=== PATIENT | female | born 1945 | race African-American/Black ===

== ENCOUNTER → 2019-01-29 | Outpatient (CLI) | payer MEDICAID, MEDICARE, OTHER | END | disposition home or self-care (01) | LOC: RAD 14:48 | PROVIDERS: ATTEND Family Medicine | DX: J98.4 Other disorders of lung (principal) | CPT/HCPCS: 71046 ==

== ENCOUNTER 2021-05-03 15:30 | Emergency (ER) | payer MEDICARE, MEDICAID ==
[~2021-05-03] VITALS: Ht 154.9 cm; Wt 69.4 kg
--- NOTE | 2021-05-03 16:00 | NUR ---
PT WALKED BACK TO ROOM WITH A SMOOTH AND STEADY GAIT WITH CANE. PT CAME INTO ED TODAY DUE TO HAVING HIGHER THAN USUAL BP. PT HAS BEEN IN THE 150S-160S SYSTOLICALLY, AND 90-100 DIASTOLICALLY. PT HAS HX OF HTN. PLACED ON MONITORING. WCTM
--- NOTE | 2021-05-03 16:38 | NUR ---
PT UA OBTAINED AND SENT TO LAB, NAD, DENIES ADDITIONAL QUESTIONS OR NEEDS AT THIS TIME. PT BED IN LOWEST, RAILS ENGAGED,CALL LIGHT ON LAP, PROVIDED WARM BLANKETS FOR COMFORT, WCTM.
[2021-05-03 16:53] LABS: MICROSCOPIC NOT IND
[2021-05-03 16:54] LABS: BASOPHILS % (AUTO) 1 % (0-1); EOSINOPHILS % (AUTO) 2 % (1-7); LYMPHOCYTES % (AUTO) 36 % (22-44); MEAN CORPUSCULAR HEMOGLOBIN 27.9 pg (27.0-34.8); MEAN CORPUSCULAR HGB CONC 32.4 g/dL (32.4-35.8); MEAN PLATELET VOLUME 7.1 fL (7.4-10.4); MONOCYTES % (AUTO) 5 % (2-9); NEUTROPHILS % (AUTO) 56 % (42-75); PLATELET COUNT 239 x10^3/uL (130-400); RED BLOOD COUNT 4.54 x10^6/uL (3.82-5.3); RED CELL DISTRIBUTION WIDTH 15.5 % (9.6-15.2)
[2021-05-03 17:03] LABS: ALANINE AMINOTRANSFERASE 15 U/L (12-78); ALBUMIN 3.3 g/dL (3.4-5.0); ANION GAP 6 mmol/L (5-15); CHLORIDE 110 mmol/L (98-107); CREATININE 1.06 mg/dL (0.55-1.02)
[2021-05-03 17:08] LABS: ALKALINE PHOSPHATASE 65 U/L (45-117); BILIRUBIN,TOTAL 0.2 mg/dL (0.2-1.0); TOTAL PROTEIN 7.6 g/dL (6.4-8.2); TROPONIN I < 0.015 ng/mL (0.000-0.045)
[2021-05-03 18:00] VITALS: BP 167/91
--- NOTE | 2021-05-03 18:30 | NUR ---
Patient given discharge instructions and they have confirmed that they understand the instructions. Patient ambulatory with steady gait. NAD, all questions answered appropriately, denies additional needs at this time. No personal belongings left in room after discharge.
== END 2021-05-03 18:32 | disposition home or self-care (01) ==
LOC: ED 18:00
DX: I10 Essential (primary) hypertension (principal); R07.89 Other chest pain
CPT/HCPCS: 36415; 71045; 80053; 81003; 84484; 85025; 93005; 99285